=== PATIENT | male | born 2005 | race Caucasian/White ===

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

== ENCOUNTER 2023-07-31 10:25 | Emergency (ER) | payer BC, SELFPAY ==
[2023-07-31] VITALS (8 sets, daily range): BP systolic 121–148; BP diastolic 74–102; PULSE 80–98; RESP 10–21; TEMP 36.4; O2SAT 98–100
--- NOTE | ~2023-07-31 | CT_ITS ---
EXAMINATION: CT abdomen pelvis w con DATE: 07/31/2023 12:25 INDICATION: Left lower quadrant abdominal pain TECHNIQUE: Computed tomography (CT) of the abdomen and pelvis was performed with 100 mL Omnipaque-350 intravenous contrast. Automated exposure control and iterative reconstruction technique were employe d. The dose-length product was 425.20 mGy-cm. COMPARISON: None FINDINGS: Lung bases are clear. Heart size is normal. No pericardial or pleural effusion. Liver, gallbladder, s pleen, pancreas, bilateral adrenal glands and kidneys are normal. There is fluid throughout the colon consistent with nonspecific diarrhea. No bowel obstruction. There are some high attenuation material within the lumen of the normal appendix with no periappendiceal inflammatory stranding to suggest ac elsie appendicitis. There is a 2.1 x 1.1 cm nodular region of increased attenuation versus enhancement most into the lumen of the cecum from the appendiceal orifice. The partially decompressed bladder is normal. No free intraperitoneal gas or fluid. No pathologically enlarged abdominal or pelvic lymphade nopathy. IMPRESSION: 1. Fluid throughout the otherwise normal-appearing colon consistent with nonspecific diarrhea. 2. 2.1 x 1.1 cm high attenuation nodule projecting into the lumen of the cecum from the appendiceal o rifice most likely representing an appendicolith. Enhancing neoplasm would be less likely given patie nt age. No findings to suggest acute appendicitis. Reviewed, dictated and finalized at location A. IMPRESSION: 1. Fluid throughout the otherwise normal-appearing colon consistent with nonspe cific diarrhea. 2. 2.1 x 1.1 cm high attenuation nodule projecting into the lumen of the cecum from the appendiceal orifice most likely representing an appendicolith. Enhanci ng neoplasm would be less likely given patient age. No findings to suggest acut e appendicitis.
[2023-07-31] MEDS: SODIUM CHLORIDE 0.9% IV 1,000 ML 999 ML IV CONT ×2 (11:43→12:39)
[2023-07-31 11:45] LABS: Basophils Percent Auto 0.3 % (0.2-1.2); Eosinophils Absolute Auto 0.2 K/mm3 (0-0.3); Hematocrit 52.3 % (42.0-52.0); Hemoglobin 19.1 g/dL (14.0-18.0); Immature Granulocyte Absolute 0.02 K/mm3 (0.00-0.031); Immature Granulocyte Percent A 0.2 % (0-0.5); Lymphocytes Absolute Auto 1.41 K/mm3 (0.9-3.2); Lymphocytes Percent Auto 13.2 % (18.3-44.2); Mean Corpuscular HGB Conc 36.5 g/dl (32-36); Mean Corpuscular Hemoglobin 31.6 pg (26-34); Mean Corpuscular Volume 86.6 fl (80-100); Mean Platelet Volume 9.4 fl (7.4-10.4); Monocytes Absolute Auto 0.9 K/mm3 (0.1-0.6); Monocytes Percent Auto 8.6 % (2.6-8.5); Neutrophils Absolute Auto 8.1 K/mm3 (1.3-6.7); Neutrophils Percent Auto 75.7 % (45.5-73.1); Platelet Count Result 217 k/mm3 (150-375); Red Blood Count 6.04 M/mm3 (4.6-6.20); Red Cell Distribution Width 12.2 % (11.5-14.5); White Blood Count 10.7 K/mm3 (4.5-10.0)
[2023-07-31 11:56] LABS: Alanine Aminotransferase 56 U/L (6-50); Albumin Level 5.6 g/dL (3.7-5.6); Alkaline Phosphatase 105 U/L (58-237); Anion Gap 17 mmol/L (4-12); Aspartate Amino Transferase 60 U/L (17-59); Bilirubin,Total 1.4 mg/dL (0.2-1.3); Blood Urea Nitrogen 16 mg/dL (8-21); Calcium 9.9 mg/dL (8.9-10.7); Carbon Dioxide 21 mmol/L (22-30); Chloride 103 mmol/L (98-107); Estimated CRCL calculation 97 ml/min; Estimated Glomerular Filt Rate > 60; Glucose 111 mg/dL (65-110); Lipase 53 U/L (23-300); Potassium 3.7 mmol/L (3.4-5.0); Sodium 141 mmol/L (134-143)
--- NOTE | 2023-07-31 12:14 | ED.GENADULT ---
HPI - General Adult General Chief complaint: Nausea/Vomiting/Diarrhea Stated complaint: N/V/D-just got back from [place] recently Time Seen by Provider: 07/31/23 11:32 History of Present Illness HPI narrative: 17-year-old male presents to the emergency department for evaluation of left lower quadrant pain. Patient recently returned from [facility] approximately 5 days ago started developing some left lower quadrant pain with associated nausea vomiting. Patient states he has had profuse diarrhea. Patient had follow-up with urgent care yesterday was started on Cipro Flagyl and Zofran for nausea control. Patient states he was unable keep any of the medications down and does have a lot of diarrhea. Related Data Allergies Allergy/AdvReac Type Severity Reaction Status Date / Time amoxicillin Allergy Unknown HIVES Verified 07/31/23 11:40 Review of Systems Review of Systems: All systems reviewed & are unremarkable except as noted in HPI and below Exam Narrative: APPEARANCE: Well appearing, no pain, no distress, well-nourished. HEAD: normocephalic, atraumatic. EYES: PERRLA/EOMI, conjunctivae clear. NOSE: Normal no drainage EARS:TMS clear with good light reflex. THROAT: Pharynx clear, no exudate. NECK: Supple. No adenopathy, no masses. RESPIRATORY: Airway patent, respirations nonlabored. Clear to auscultation bilaterally, no rales, rhonchi, wheezing. CARDIOVASCULAR: Regular rate and rhythm without murmurs rubs or gallops. ABDOMINAL: Left lower quadrant tenderness to palpation MUSCULOSKELETAL: Moves all extremities. Strength/ROM intact, No edema, No calf tenderness. NEURO: Alert. Cranial nerves II through XII intact. Good gait. Good coordination SKIN: Warm, dry. Normal Color Course Course Emergency Course: Patient felt improved with treatment. Vital Signs Vital signs: Vital Signs Temperature 97.6 F 07/31/23 10:29 Pulse Rate 92 07/31/23 10:29 Respiratory Rate 16 07/31/23 10:29 Blood Pressure 142/88 H 07/31/23 10:29 Pulse Oximetry 98 07/31/23 10:29 Oxygen Delivery Room Air 07/31/23 10:29 Temperature 97.6 F 07/31/23 10:29 Pulse Rate 80 07/31/23 14:21 Respiratory Rate 20 07/31/23 14:21 Blood Pressure 121/74 07/31/23 14:21 Pulse Oximetry 100 07/31/23 14:21 Oxygen Delivery Room Air 07/31/23 10:29 Medical Decision Making MDM Narrative Medical decision making narrative: 17-year-old male present to the emergency department for evaluation of persistent diarrhea and lower abdominal pain. Patient is afebrile with a leukocytosis of 10.7 a stable hemoglobin of 19.1. No acute abnormalities on the patient's CMP. Patient has some mild elevation and T bili AST and ALT, no evidence of urinary tract infection. CT scan was ordered due to the patient having left lower quadrant tenderness to palpation. CT scan does show evidence a diarrheal illness. Patient is already on Cipro and Flagyl. Patient is also taking Zofran. Patient was advised to switch to a clear liquid diet for the next few days and is also being provided Reglan for nausea control. All questions concerns were addressed patient was well-appearing at discharge. Differential Diagnosis Differential Diagnosis: Appendicitis, diverticulitis, colitis, diarrhea illness, gastroenteritis Vital Signs Vital Signs: Vital Signs Temperature 97.6 F 07/31/23 10:29 Pulse Rate 92 07/31/23 10:29 Respiratory Rate 16 07/31/23 10:29 Blood Pressure 142/88 H 07/31/23 10:29 Pulse Oximetry 98 07/31/23 10:29 Oxygen Delivery Room Air 07/31/23 10:29 Temperature 97.6 F 07/31/23 10:29 Pulse Rate 80 07/31/23 14:21 Respiratory Rate 20 07/31/23 14:21 Blood Pressure 121/74 07/31/23 14:21 Pulse Oximetry 100 07/31/23 14:21 Oxygen Delivery Room Air 07/31/23 10:29 Lab Data Lab results reviewed: Yes I reviewed the patient's lab results. 07/31/23 11:38 07/31/23 11:38 Labs: Lab Results
[2023-07-31] MEDS: METOCLOPRAMIDE HCL INJ 10 MG/2 ML VIAL IV PUSH (12:38)
[2023-07-31 12:44] LABS: Appearance Urine Clear (Clear); Bacteria Urine None Seen /hpf; Bilirubin Urine Negative (Negative); Blood Urine Negative (Negative); Color Urine Yellow (Yellow); Glucose Urine UA Negative (Negative); Ketones Urine 1+ mg/dL (Negative); Leukocyte Esterase Ur Negative LEU/UL (Negative); Nitrate Urine Negative (Negative); Non Pathogenic Casts 0-2; Protein Urine 1+ mg/dL (Negative); RBC Urine 0-2 /hpf (0-2); Squamous Epithelial Cell Urine None Seen /hpf (Few); Urobilinogen Urine 0.2 mg/dL (<2.0); WBC Urine 0-5 /hpf (0-3)
[2023-07-31 12:50] LABS: Add Urine Microscopic? YES
== END 2023-07-31 14:23 | disposition home or self-care (01) ==
PROVIDERS: Student in an Organized Health Care Education/Training Program; Emergency Provider Emergency Medicine
DX: K52.9 Noninfective gastroenteritis and colitis, unspecified (principal)
CPT/HCPCS: 36415; 74177; 80053; 81001; 83690; 85025; 96361; 96374; 99284; J2765; J7030; Q9967

== ENCOUNTER 2024-03-07 01:52 | Emergency (ER) | payer BC, SELFPAY ==
--- NOTE | ~2024-03-07 | XR_ITS ---
XR hand RT min 3V 03/07/2024 07:25 Indication: Laceration to the hand. Procedure: 3 views right hand Comparison: 12/21/2021 Findings: Study limited due to nonstandard views. There is a healed fifth metacarpal fracture. No acu te fracture or traumatic malalignment. Impression: 1: No acute fracture. No foreign bodies. Reviewed, dictated and finalized at location A. [employer] Impression: 1: No acute fracture. No foreign bodies.
--- OUTSIDE RECORDS SUMMARY | 2024-03-07 01:54 | XMS_ITS | Referral Summary ---
Author Organization [facility] Address [address] [place] [address] Care Team Providers Care Center Medical Specialist Name Role Phone Bailey Lomeli MD Primary Care Provider [phone] Source Comments [facility],non-owned Affiliates and Associated Physician Practices is amultiple site organization consisting of ambulatory clinics and hospital sitesin [place], [place], [place] and [place]. This disclosure is being madepursuant to the Care Everywhere program and may not contain all information available regarding this patient. Last updated 17.[facility] Allergies Active Allergy Reactions Criticality Noted Date Comments Amoxicillin Urticaria 10/16/2013 Medications * Be aware that medications may not be up to date on this document. Alwaysverify current medications with the patient. Medication Sig Dispensed Refills Start Date End Date Status cetirizine (ZYRTEC CHILDRENS ALLERGY) 5 MG/5ML syrup Take 10 mg by mouth once daily. Active Social History Tobacco Use Types Packs/Day Years Used Date Smoking Tobacco: Never Assessed Sex and Gender Information Value Date Recorded Sex Assigned at Not on file Gender Identity Not on file Sexual Orientation Not on file Last Filed Vital Signs Vital Sign Reading Time Taken Comments Blood Pressure - - Pulse - - Temperature - - Respiratory Rate - - Oxygen Saturation - - Inhaled Oxygen Concentration - - Weight 38.1 kg (83 lb 14.4 oz) 10/16/2013 10:10 AM CDT Height 144.6 cm (4' 8.93 ) 10/16/2013 10:10 AM C DT Body Mass Index 18.2 10/16/2013 10:10 AM CDT Plan of Treatment Not on file Care Teams Center Medical Specialist Relationship Specialty Start Date End Date Bailey Lomeli MD PCP - General Pediatrics 10/15/13
--- OUTSIDE RECORDS SUMMARY | 2024-03-07 01:54 | XMS_ITS | Clinical Summary ---
Author Organization [facility] Address [address], [facility] [address] [place] [address] Phone Care Team Providers Care Principal Process Engineer Name Role Phone Anders Messer Primary Care Provider + Abraham Lancaster MD Unavailable Allergies Active Allergy Reactions Criticality Noted Date Comments Amoxicillin Hives 10/16/2013 Cefdinir Diarrhea 03/17/2023 Medications Adzenys XR-ODT 9.4 MG Tablet Extended Release Dispersible DISSOLVE 1 TABLET ON THE TONGUE EVERY DAY 4 Active clonazePAM (KlonoPIN) 0.5 MG Tablet Take 0.5 mg by mouth 3 times daily. 3 Active venlafaxine (EFFEXOR) 25 MG Tablet TAKE 1 TABLET BY MOUTH EVERY DAY AT NOON FOR 1 WEEK. INCREASE TO 1 TABLET 2 TIMES A DAY 3 Active eszopiclone (LUNESTA) 2 MG Tablet take 1 tablet by mouth every night at bedtime as needed for insomnia 3 Active pantoprazole (PROTONIX) 40 MG Tablet Delayed Response Take 40 mg by mouth daily. 4 Active Active Problems No known active problems Family History Medical History Relation Name Comments Hypertension Paternal Grandfather Relation Name Status Comments Paternal Grandfather Social History Tobacco Use Types Packs/Day Years Used Date Smoking Tobacco: Former Cigarettes Q uit: 02/2023 Smokeless Tobacco: Never Alcohol Use Standard Drinks/Week Comments Yes 0 (1 standard drink = 0.6 oz pur e alcohol) 2 drinks weekly Sex and Gender Information Value Date Recorded Sex Assigned at Not on file Legal Sex Male 11:40 AM ADJUNCT PSYCHOLOGY FACULTY MEMBER Gender Identity Not on file Sexual Orientation Not on file Last Filed Vital Signs Vital Sign Reading Time Taken Comments Blood Pressure 126/86 03/17/2023 11:32 AM ADJUNCT PSYCHOLOGY FACULTY MEMBER Pulse 78 03/17/2023 11:32 AM ADJUNCT PSYCHOLOGY FACULTY MEMBER Temperature 36.9 ??C (98.4 ??F) 03/17/2023 1 1:32 AM ADJUNCT PSYCHOLOGY FACULTY MEMBER Respiratory Rate 18 03/17/2023 11:3 2 AM ADJUNCT PSYCHOLOGY FACULTY MEMBER Oxygen Saturation 98% 03/17/2023 11: 32 AM ADJUNCT PSYCHOLOGY FACULTY MEMBER Inhaled Oxygen Concentration - - Weight 79.3 kg (174 lb 14.4 oz) 024 11:32 AM ADJUNCT PSYCHOLOGY FACULTY MEMBER Height 182.9 cm (6') 03/17/2023 11:32 AM ADJUNCT PSYCHOLOGY FACULTY MEMBER Body Mass Index 23.72 03/17/2023 11:32 AM ADJUNCT PSYCHOLOGY FACULTY MEMBER Plan of Treatment Health Maintenance Due Date Last Done Comments Hepatitis C Virus (HCV) Screening 2003 Meningococcal B Immunization (1 of 2 - Standard) 2019 Influenza Immunization (#1) 10/09/202312/09, 12/30/2021, 11/09/2019, Additional history exists SARS-COV-2 Immunization ( season) 2023 11/17/2020, 10/20/2020 Respiratory Syncytial Virus (RSV) Immunization (Adult) (1 - 1-dose 75+ series) 12/02/2078 Hepatitis B Immunization Completed 005, 03/30/2004, 02/05/2004, Additional history exists Pneumococcal Immunization Combined Aged Out 12/11/2004, 05/29/2004, 03/30/2004, Additional history exists No longer eligible based on patient's age to complete this topic DTaP/Tdap/Td Immunization Discontinued 2015, 05/29/2009, 03/04/2005, Additional history exists TdaP Immunization Completed 09/30/2015 Human Papillomavirus (HPV) Immunization Completed 04/05/2016, 12/01/2015, 09/30/2015 Meningococcal Immunization (ACWY) Completed 09/05/2020, 09/30/2015 Rotavirus Immunization Aged Out No lo nger eligible based on patient's age to complete this topic Insurance [facility] Care Teams Principal Process Engineer Relationship Specialty Start Date End Date Anders Messer DO [address] [place] [id number] PCP - General Family Medicine 03/02/23 Abraham Lancaster MD [address] [place] [id number] Consulting Physician Oncology 03/02/23
--- OUTSIDE RECORDS SUMMARY | 2024-03-07 01:55 | XMS_ITS | Clinical Summary ---
Author Organization [facility] Address [address] [place] [address]. [place], [place] [address] [place] [address] Care Team Providers Care Home Mortgage Disclosure Act Specialist Name Role Phone Gui Anders Rivera DO Primary Care Provider + Allergies Active Allergy Reactions Criticality Noted Date Comments Amoxicillin Hives 10/16/2013 Cefdinir Diarrhea 03/17/2023 Medications busPIRone (BUSPAR) 15 MG tablet Take 1 tablet (15 mg total) by mouth daily. 3 Active clonazePAM (KLONOPIN) 0.5 MG tablet Take 1 tablet (0.5 mg total) by mouth 3 (three) times daily as needed. 3 Active eszopiclone (LUNESTA) 2 MG tablet take 1 tablet by mouth every night at bedtime as needed for insomnia 3 Active ADZENYS XR-ODT 12.5 MG Tablet Extended Release Dispersible DISSOLVE 1 TABLET ON THE TONGUE EVERY MORNING 4 Active pantoprazole EC (PROTONIX) 40 MG tabletIndication s:Gastroesophage al reflux disease, unspecified whether esophagitis present Take 1 tablet (40 mg total) by mouth daily. 90 tablet 3 4 Active sertraline (ZOLOFT) 100 MG tablet Take 1 tablet (100 mg total) by mouth daily. 4 Active Active Problems Problem Noted Date Diagnosed Date Anxiety 10/20/2022 ADHD (attention deficit hyperactivity disorder) 10/20/2022 Encounters Date Type Department Care Team Description 12/07/2023 Telephone [facility] Family & Internal Medicine [address] [phone] Anders Messer DO Referral from Last 3 Months Immunizations Name Administration Dates Next Due DTaP (Daptacel) 05/29/2009, 6,05/29/2004,03/30,02/05/2004 Flumist (Intranasal LAIV4) 11/07/2012,,01/05/2010,12/04,11/07/2008 HPV GARDASIL 9-VALENT 04/05/2016,12/01/2015,09/08 Hepatitis A (Havrix [address]) 05/29/2009, 008 Hepatitis B Pediatric 2003 Hib-Hepatitis B (Comvax) 12/11/2004,03/30/2004,1 2003 Influenza (FluMist) 11/06/2014 Influenza (Generic) 01/06/2011, 8,12/12/2006,12/03,12/11/2004,11/11/2004 Influenza Adult (Generic) 12/30/2021,03/2019,11/16/2018,12/15,11/12/2016,12/01/2015 MMR (MMRII) 05/29/2009,12/11/2004 Meningococcal (MenQuadfi) 09/05/2020 Meningococcal (Menactra) 09/30/2015 PFIZER COVID-19 (ORIGINAL FO RMULATION, PURPLE CAP) mRNA, LNP-S, PF, 30 MCG/0.3 ML DOSE 11/17/2020,10/20/2020 Pneumococcal (Prevnar 7) 12/11/2004,05/09,03/30/2004,02/04 Polio IPV (Ipol) 05/29/2009, 5,03/30/2004,02/04 Tdap (Generic) 09/30/2015 Varicella (Varivax) 05/29/2009,03/04/2005 Family History Medical History Relation Comments Hypertension Paternal Grandfather Relation Status Comments Paternal Grandfather Social History Tobacco Use Types Packs/Day Years Used Date Smoking Tobacco: Never Passive Smoke Exposure: Never Smokeless Tobacco: Never Tobacco Cessation:Counseling Given: Not Answered Alcohol Use Standard Drinks/Week Comments Yes 16.7 (1 standard drink = 0.6 oz pure alcohol) PHQ-2 Answer Date Recorded Patient Health Questionnaire-2 Score 0 04/13/2023 Sex and Gender Information Value Date Recorded Sex Assigned at Male 10/20/2022 1:32 PM CDT Legal Sex Male 10:21 AM CDT Gender Identity Male 10/20/2022 1:32 PM CDT Sexual Orientation Straight 10/20/2022 1: 32 PM CDT Occupation Industry Job Start Date Job End Date Not on file Not on file Not on file Not on file Last Filed Vital Signs Vital Sign Reading Time Taken Comments Blood Pressure 124/84 12/01/2023 10:56 AM CDT Pulse 71 12/01/2023 10:56 AM CDT Temperature 36.7 ??C (98.1 ??F) 12/01/2023 1 0:56 AM CDT Respiratory Rate 16 12/01/2023 10:5 6 AM CDT Oxygen Saturation 98% 12/01/2023 10: 56 AM CDT Inhaled Oxygen Concentration - - Weight 93.8 kg (206 lb 12.8 oz) 024 10:56 AM CDT Height 181.6 cm (5' 11.5 ) 12/01/2023 1 0:56 AM CDT Body Mass Index 28.44 12/01/2023 10:56 AM CDT Plan of Treatment Upcoming Encounters Date Type Department Care Team (Late st Contact Info) Description 03/07/2024 1:00 PM PALS SPECIALIST Office Visit [facility] Multispecialty Care - [facility] [address] [place] [address] Rebeca Ugalde, RE[address] [place] [address] Anny Avery NP [address] [facility] [address] [place] [address] Health Maintenance Due Date Last Done Comments Meningococcal B Vaccine (1 of 2 - Standard) 2019 COVID-19 Vaccine (3 - season) 2023 11/17/2020, 10/20/2020 Annual Physical 10/21/2023 10/20/2022 Influenza Adult (#1) 2023 12/30/2021, 11/09/2019, 11/16/2018, Additional history exists PHQ-2 (Physician Lamont) 02/08/2024 04/13/2023 DTaP, Tdap and Td Vaccines (7 - Td or Tdap) 09/29/2025 09/30/2015, 05/29/2009, 03/04/2005, Additional history exists Hepatitis B Vaccines Completed 12/11/2004, 03/30/2004, 02/05/2004, Additional history exists Pneumococcal Vaccine: Pediatrics (0 to 5 Years) and At-Risk Patients (6 to 64 Years) Aged Out 12/11/2004, 05/29/2004, 03/30/2004, Additional history exists No longer eligible based on patient's age to complete this topic HPV Vaccines Completed 04/05/2016, 11/08, 09/30/2015 Meningococcal Vaccine Completed 09/05/2020, 016 Hepatitis C Completed 10/20/2022 RSV Immunizations Under 20 Months Aged Out No longer eligible based on patient's age to complete this topic Procedures Procedure Name Priority Date/Time Associated Diagnosis Comments HEPATITIS C ANTIBODY Routine 10/20/2022 3:00 PM CDT Encounter for preventative adult health care examination Screening for lipid disorders Screening for endocrine, metabolic and immunity disorder Need for hepatitis C screening test Screening for HIV without presence of risk factors from Last 3 Months or Most Recently Relevant to Health Maintenance Results * HEPATITIS C ANTIBODY (10/20/2022 3:00 PM CDT) HEPATITIS C AB NON-REACTI VE NON-REACT FARTUN 10/20/2022 10:23 PM CDT [facility] Comment: ANTIBODIES TO HCV NOT DETECTED. DOES NOT EXCLUDE THE POSSIBILITY OF EXPOSURE TO HCV. 10/20/2022 3:00 PM CDT Anders Messer DO LABORATORY Final Re sult [facility] [address] [place] [address], [phone] from Last 3 Months or Most Recently Relevant to Health Maintenance Insurance Care Teams Home Mortgage Disclosure Act Specialist Relationship Specialty Start Date End Date Anders Messer DO [address] [place] [id number] PCP - General FAMILY PRACTICE 07/26/22
--- OUTSIDE RECORDS SUMMARY | 2024-03-07 01:55 | XMS_ITS | Clinical Summary ---
Author Organization [facility] Address [address] [place] [address] Care Team Providers Care Application Counselor Name Role Phone Bailey Lomeli MD Primary Care Provider [phone] Source Comments [facility],non-owned Affiliates and Associated Physician Practices is amultiple site organization consisting of ambulatory clinics and hospital sitesin [place], [place], [place] and [place]. This disclosure is being madepursuant to the Care Everywhere program and may not contain all information available regarding this patient. Last updated 17.[facility] Allergies Active Allergy Reactions Criticality Noted Date [...] 10/16/2013 10:10 AM CDT Plan of Treatment Health Maintenance Due Date Last Done Comments HIV SCREENING 12/02/2018 HPV VACCINE (1 - Male 3-dose series) 12/02/2018 MENINGOCOCCAL (Group B) VACC INE (1 of 2 - Standard) 2019 HEPATITIS C SCREENING 11/28/2021 DTAP/TDAP/TD VACCINES (1 - Tdap) 12/02/2022 HEPATITIS B VACCINE (1 of 3 - 19+ 3-dose series) 12/02/2022 COVID-19 VACCINE (1 - 2023-2 5 season) 2023 INFLUENZA VACCINE (#1) 2023 DEPRESSION SCREENING 02/08/2024 ZOSTER VACCINE (1 of 2) 12/02/2053 HIB VACCINE Aged Out No longer eligi ble based on patient's age to complete this topic MENINGOCOCCAL VACCINE Aged Out No carl brando eligible based on patient's age to complete this topic PNEUMOCOCCAL VACCINE Aged Out No long er eligible based on patient's age to complete this topic Care Teams Application Counselor Relationship Specialty Start Date End Date Bailey Lomeli MD PCP - General Pediatrics 10/15/13
--- OUTSIDE RECORDS SUMMARY | 2024-03-07 01:55 | XMS_ITS | Patient Health Summary ---
Author Organization [facility] Address [address] [facility] [place] [address] Care Team Providers Care Community Liaison Officer Name Role Phone Bailey Lomeli MD Primary Care Provider [phone] Note from [facility],non-owned Affiliates and Associated Physician Practices is amultiple site organization consisting of ambulatory clinics and hospital sitesin [place], [place], [place] and [place]. This disclosure is being madepursuant to the Care Everywhere program and may not contain all information available regarding this patient. Last updated 17.[facility] Allergies * Amoxicillin(Urticaria) Medications * Be aware that medications may not be up to date on this document. Alwaysverify current medications with the patient. * cetirizine (ZYRTEC CHILDRENS ALLERGY) 5 MG/5ML syrup Take 10 mg by mouth once daily. Social History Tobacco Use Types Packs/Day Years [...] Mass Index 18.2 10/16/2013 10:10 AM CDT Care Teams Community Liaison Officer Relationship Specialty Start Date End Date Bailey Lomeli MD PCP - General Pediatrics 10/15/13
[2024-03-07 01:59] VITALS: BP 148/80; PULSE 90; RESP 18; TEMP 36.4; O2SAT 98
[2024-03-07 06:52] VITALS: BP 148/94; PULSE 96; RESP 18; O2SAT 99
--- NOTE | 2024-03-07 07:15 | ED.GENADULT ---
HPI - General Adult General Chief complaint: Wound/Laceration Stated complaint: right hand lac Time Seen by Provider: 03/07/24 06:52 History of Present Illness HPI narrative: 18-year-old male present to the emergency department for evaluation for a laceration to the back of his right hand. Patient states he was attempting to prepare food and actually cut his right hand. Patient denies any intent for self-harm. Related Data Allergies Allergy/AdvReac Type Severity Reaction Status Date / Time amoxicillin Allergy Unknown HIVES Verified 07/31/23 11:40 Review of Systems Review of Systems: All systems reviewed & are unremarkable except as noted in HPI and below Exam Narrative: APPEARANCE: Well appearing, no pain, no distress, well-nourished. HEAD: normocephalic, atraumatic. EYES: PERRLA/EOMI, conjunctivae clear. NOSE: Normal no drainage EARS:TMS clear with good light reflex. THROAT: Pharynx clear, no exudate. NECK: Supple. No adenopathy, no masses. RESPIRATORY: Airway patent, respirations nonlabored. Clear to auscultation bilaterally, no rales, rhonchi, wheezing. CARDIOVASCULAR: Regular rate and rhythm without murmurs rubs or gallops. ABDOMINAL: Soft, nontender, nondistended, normal bowel sounds MUSCULOSKELETAL: Moves all extremities. Strength/ROM intact, No edema, No calf tenderness. NEURO: Alert. Cranial nerves II through XII intact. Grossly intact SKIN: Laceration to dorsal surface of right hand. Laceration was shallow and did not involve the head Course Vital Signs Vital signs: Vital Signs Temperature 97.6 F 03/07/24 01:59 Pulse Rate 90 03/07/24 01:59 Respiratory Rate 18 03/07/24 01:59 Blood Pressure 148/80 H 03/07/24 01:59 Pulse Oximetry 98 03/07/24 01:59 Temperature 97.6 F 03/07/24 01:59 Pulse Rate 96 03/07/24 06:52 Respiratory Rate 18 03/07/24 06:52 Blood Pressure 148/94 H 03/07/24 06:52 Pulse Oximetry 99 03/07/24 06:52 Procedures Laceration Laceration 1: Date: 03/07/24 Time: 09:02 Site: upper extremity and hand Side (If applicable): right Size (cm): 3 Description: linear and irregular Depth: simple, single layer Local Anesthetic: lidocaine 1% Amount of anesthesia used (mL): 4 Pre-repair: wound explored and irrigated ====== Skin Level ====== Skin layer closed with: prolene Size (cm): 4-0 Number of sutures: 6 ====== Subcutaneous Layer ====== ====== Muscle Layer ====== ====== Tendon Layer ====== Medical Decision Making MDM Narrative Medical decision making narrative: 18-year-old male present to the emergency department for evaluation for laceration of the dorsum of the right hand. X-ray was negative for acute fracture foreign body. Laceration was repaired as described above. Patient's tetanus was up-to-date. Patient was comfortable with plan for discharge and close follow-up. Tetanus was up-to-date Differential Diagnosis Differential Diagnosis: Tendon injury, ligament injury, arterial injury, lesser Vital Signs Vital Signs: Vital Signs Temperature 97.6 F 03/07/24 01:59 Pulse Rate 90 03/07/24 01:59 Respiratory Rate 18 03/07/24 01:59 Blood Pressure 148/80 H 03/07/24 01:59 Pulse Oximetry 98 03/07/24 01:59 Temperature 97.6 F 03/07/24 01:59 Pulse Rate 96 03/07/24 06:52 Respiratory Rate 18 03/07/24 06:52 Blood Pressure 148/94 H 03/07/24 06:52 Pulse Oximetry 99 03/07/24 06:52 Imaging Data Radiologist's impression: Impressions Hand X-Ray 03/07/24 07:25 Impression: 1: No acute fracture. No foreign bodies. Discharge Plan Discharge Clinical Impression: Laceration Patient Disposition: Home, Self-Care Condition: Stable Instructions: Antibiotic Form, Laceration (ED) Additional Instructions: Wound care as directed. Sutures need to be removed in 7-10 days. Have close follow-up with her primary care physician. Patient Language: Arabic Prescriptions: No Action metoclopramide HCl [Reglan] 10 mg tablet 10 mg PO Q6H PRN (Reason: nausea and vomiting) Qty: 14 0RF Follow-up/Referrals: UNKNOWN,DOCTOR [Primary Care Provider] -
[2024-03-07] MEDS: HYDROcodone/acetaminophen (*CRX) 5-325 MG TABLET 1 TAB PO (07:28)
[2024-03-07] MEDS: clonazePAM (*CRX) 0.5 MG TABLET 1 MG PO (07:28)
== END 2024-03-07 09:19 | disposition home or self-care (01) ==
PROVIDERS: Emergency Provider Emergency Medicine
DX: S61.411A Laceration without foreign body of right hand, initial encounter (principal); W26.0XXA Contact with knife, initial encounter; Y93.G9 Activity, other involving cooking and grilling
CPT/HCPCS: 12002; 73130; 99283; A9270